=== PATIENT | female | born 1940 | race Caucasian/White ===

== ENCOUNTER 2021-10-21 14:42 | Emergency (ER) | payer OTHER, MEDICARE ==
[2021-10-21] MEDS ORDERED: NYSTATIN 100MU/GM CREAM 15GM TOP ONE (18:52)
--- NOTE | 2021-10-21 19:24 | EDPHYS ---
Physician Documentation [facility] Name: Gemma Samayoa Age: 81 yrs Sex: Female : 1940 Arrival Date: 10/21/2021 Time: 14:47 Bed 2 Private MD: ED Physician Con Emery HPI: 10/21 15:02 This 81 yrs old Female presents to ER via EMS with complaints of Rash. ms3 15:02 The patient's rash thought to be caused by Dermatitis. The rash is located on the ms3 buttock. The rash can be described as erythematous. Onset: The symptoms/episode began/occurred at an unknown time. Associated signs and symptoms: Pertinent positives: None. Pertinent negatives: None. Severity of symptoms: At their worst the symptoms were moderate. Historical: - Allergies: 15:00 No Known Allergies; ph - Immunization history:: Client reports receiving the 2nd dose of the Covid vaccine. - Social history:: Smoking status: Patient denies any tobacco usage or history of. ROS: 15:02 Constitutional: Negative for fever, and chills. Neck: Negative for injury, pain, and ms3 swelling, Cardiovascular: Negative for chest pain, and palpitations. Respiratory: Negative for shortness of breath, cough, wheezing, and pleuritic chest pain, Abdomen/GI: Negative for abdominal pain, nausea, vomiting, diarrhea, and constipation. 15:02 Skin: Positive for erythema. 15:02 All other systems are negative. ms3 Exam: 15:02 Constitutional: This is a well developed, well nourished patient who is awake, alert, ms3 and in no acute distress. Neck: Trachea midline, no cervical lymphadenopathy. Supple, full range of motion without nuchal rigidity, or vertebral point tenderness. No Meningismus. Chest/axilla: Normal chest wall appearance and motion. Nontender with no deformity. Cardiovascular: Regular rate and rhythm with a normal S1 and S2. No gallops, murmurs, or rubs. Normal PMI, no JVD. No pulse deficits. Respiratory: Lungs have equal breath sounds bilaterally, clear to auscultation and percussion. No rales, rhonchi or wheezes noted. No increased work of breathing, no retractions or nasal flaring. Abdomen/GI: Soft, non-tender, with normal bowel sounds. No distension or tympany. No guarding or rebound. No evidence of tenderness throughout. Back: No spinal tenderness. No costovertebral tenderness. Full range of motion. Psych: Awake, alert, with orientation to person, place and time. Behavior, mood, and affect are within normal limits. 15:02 Skin: rash a severe rash is noted, rash can be described as erythematous, Diaper rash. Vital Signs: 14:47 BP 119 / 74; Pulse 61; Resp 18; Temp 98.2; Pulse Ox 100% on R/A; ph 16:15 BP 116 / 84; Pulse 60; Resp 14; Pulse Ox 99% ; ph 17:27 BP 112 / 80; Pulse 66; Resp 18; Pulse Ox 98% on R/A; ph 18:30 BP 118 / 72; Pulse 64; Resp 16; Temp 97.9; Pulse Ox 99% on R/A; ph MDM: 14:57 Patient medically screened. ms3 15:02 Differential diagnosis: Dermatitis vs Cellulitis. Data reviewed: vital signs, nurses ms3 notes. Counseling: I had a detailed discussion with the patient and/or guardian regarding: the historical points, exam findings, and any diagnostic results supporting the discharge/admit diagnosis, the need for outpatient follow up, to return to the emergency department if symptoms worsen or persist or if there are any questions or concerns that arise at home. ED course: Discussed physical exam findings with patient. Patient to follow-up with primary care physician in 2 to 3 days. Patient understands and agrees with plan. All questions were answered. Return precautions discussed include worsening symptoms, or any other concerns. . Administered Medications: No medications were administered Disposition Summary: 10/21/21 14:57 Discharge Ordered Location: Home ms3 Condition: Stable ms3 Diagnosis - Dermatitis, unspecified ms3 - Diaper dermatitis ms3 Followup: ms3 - With: Private Physician - When: 2 - 3 days - Reason: Re-evaluation by your physician Discharge Instructions: - Discharge Summary Sheet ms3 - Diaper Rash ms3 Forms: - Medication Reconciliation Form ms3 - Thank You Letter ms3 - Antibiotic Education ms3 - Prescription Opioid Use ms3 Prescriptions: - Nystatin-Triamcinolone 100,000-0.1 unit/g-% Topical Cream - apply 1 application by TOPICAL route 2 times per day; 1 tube; Refills: 0, ms3 Product Selection Permitted Signatures: Barbara Arana, RN RN ph Con Emrey, DO ms3 Corrections: (The following items were deleted from the chart) 15:05 15:02 Skin: Positive for erythema, ms3 ms3
--- NOTE | 2021-10-21 19:24 | ER ---
Nurse's Notes [facility] Name: Gemma Samayoa Age: 81 yrs Sex: Female : 1940 Arrival Date: 10/21/2021 Time: 14:47 Bed 2 Private MD: Diagnosis: Dermatitis, unspecified;Diaper dermatitis Presentation: 10/21 14:47 Chief complaint: EMS states: Pt from home, was dx w/ covid approx 1 week ago, usually ph ambulates w/ a walker but has had increasing weakness and fatigue since diagnosis, daughter has been staying w/ pt to care for her, pt was found w/ a brief full of stool and urine, severe diaper rash noted to buttocks and labia, daughter stated that she had not changed brief since last night at approx 9 pm. Coronavirus screen: Vaccine status: Patient reports receiving the 2nd dose of the covid vaccine. Ebola Screen: No symptoms or risks identified at this time. Initial Sepsis Screen: Does the patient meet any 2 criteria? No. Patient's initial sepsis screen is negative. Does the patient have a suspected source of infection? No. Patient's initial sepsis screen is negative. Risk Assessment: Do you want to hurt yourself or someone else? Patient reports no desire to harm self or others. Onset of symptoms was October 21, 2021. 14:47 Method Of Arrival: EMS: [facility] 14:47 Acuity: EDMOND 4 ph Historical: - Allergies: 15:00 No Known Allergies; ph - Immunization history:: Client reports receiving the 2nd dose of the Covid vaccine. - Social history:: Smoking status: Patient denies any tobacco usage or history of. Screenin:27 Abuse screen: Denies threats or abuse. Denies injuries from another. Nutritional ph screening: No deficits noted. Tuberculosis screening: No symptoms or risk factors identified. Fall Risk None identified. Assessment: 15:00 Reassessment: Dr Emery at bedside w/ nurse to assess pt, rash noted to buttocks and ph labia, dried stool present. 15:15 General: Appears in no apparent distress. Behavior is calm, cooperative, appropriate ph for age. Pain: Complains of pain in buttocks. Neuro: Level of Consciousness is awake, alert, obeys commands, Oriented to person, place. Cardiovascular: Capillary refill < 3 seconds in bilateral fingers Patient's skin is warm and dry. Respiratory: Airway is patent Respiratory effort is even, unlabored, Breath sounds are clear bilaterally. : red rash noted to labia. Derm: Skin is fragile, is thin, Skin is pink, warm \\T\\ dry. Rash noted that is red, on gluteal cleft, left gluteus nikos, right gluteus nikos, left gluteal fold and right gluteal fold raw/macerated. 16:18 Reassessment: Called pt's daughter to inform her that pt has been placed up for d/c, ph pt's daughter stated, " Oh okay, like right now? Well was she dehydrated? Did you give her some fluids?" Informed family member that EMS did not mention concern for dehydration, primary complaint for visit was rash to buttocks, also informed her that the pt's VS did not reflect dehydration, BP 116/84, HR 62. Daughter said, " Well, she never drinks anything and she has just been so weak since she's had covid so I was worried that she may be dehydrated. Can you do something about that? I'm at [facility] right now getting some things so I can't come get her." Informed her that it would be up to the doctor whether she was further evaluated. Daughter then asked, " Well is she getting antibiotics for her rash?" Informed daughter that the pt was prescribed antifungal cream for the rash and that is a yeast infection. Also emphasized to daughter the importance of keeping pt clean and dry and not allowing her to sit in urine or stool for prolonged periods of time. Daughter again requested that pt be evaluated for dehydration, states, " Just call me and let me know. I'll have my phone on me.". 16:35 Reassessment: Called pt's daughter back to inform her that the doctor would be ordering ph no further testing, daughter again voiced concern for dehydration, states, " She just seems so weak at home, that's why I was worried." states that she will be here to [place] picker pt after she was done at [facility]. 17:27 Reassessment: Patient appears in no apparent distress at this time. Patient and/or ph family updated on plan of care and expected duration. Pain level reassessed. Awaiting daughter to [place] pick[place] pt, VS remian stable. 19:00 Reassessment: Patient appears in no apparent distress at this time. Patient and/or ph family updated on plan of care and expected duration. Pain level reassessed. Daughter at bedside for d/c, given d/c instructions, prescriptions and reiterated the importance of changing pt's brief after episodes of incontinence. Brief changed and barrier cream applied to rash prior to d/c. Vital Signs: 14:47 BP 119 / 74; Pulse 61; Resp 18; Temp 98.2; Pulse Ox 100% on R/A; ph 16:15 BP 116 / 84; Pulse 60; Resp 14; Pulse Ox 99% ; ph 17:27 BP 112 / 80; Pulse 66; Resp 18; Pulse Ox 98% on R/A; ph 18:30 BP 118 / 72; Pulse 64; Resp 16; Temp 97.9; Pulse Ox 99% on R/A; ph ED Course: 14:47 Patient arrived in ED. ph 14:49 Con Emery DO is Attending Physician. ms3 15:00 Triage completed. ph 15:00 Arm band placed on Patient placed in an exam room, on a stretcher. ph 15:10 Cleaned of incontinence. dried stool cleaned from feet, legs and hands, applied ph calamize cream to rash on buttocks and labia. Pt placed in clean brief and hospital gown, personal clothing and sheets placed in pt belonging bag. 15:28 Patient has correct armband on for positive identification. Placed in gown. Bed in low ph position. Call light in reach. Side rails up X 1. Door closed. Noise minimized. Warm blanket given. 15:38 Barbara Arana RN is Primary Nurse. ph 19:20 No provider procedures requiring assistance completed. Patient did not have IV access ph during this emergency room visit. 19:21 Primary Nurse role handed off by Barbara Arana RN mw2 Administered Medications: No medications were administered Medication: 15:30 VIS not applicable for this client. ph Outcome: 14:57 Discharge ordered by . ms3 19:23 Patient left the ED. ph 19:23 Discharged to home via wheelchair, with family. ph 19:23 Condition: good 19:23 Discharge instructions given to family, Instructed on discharge instructions, follow up and referral plans. medication usage, Demonstrated understanding of instructions, follow-up care, medications. Signatures: Barbara Arana RN RN ph Fidelia, Joey mw2 Con Emery DO DO ms3
[2021-10-21 19:28] VITALS: TEMP 98.2
[2021-10-21 19:32] VITALS: BP 112/80; O2SAT 98
== END 2021-10-21 19:23 | disposition home or self-care (01) ==
LOC: ER 14:42
DX: L22 Diaper dermatitis (principal)
CPT/HCPCS: 99283